=== PATIENT | male | born 1995 | race Caucasian/White ===

== ENCOUNTER 2018-01-11 15:10 | Emergency (ER) | payer OTHER, BC ==
[2018-01-11] MEDS ORDERED: ISOVUE-370 76% 100ML VIAL (Q9967) As Ordered (15:31)
[2018-01-11] MEDS ORDERED: MORPHINE 4 MG/ML 1ML VIAL/SYRINGE (J2270) As Ordered (15:35)
[2018-01-11 15:47] LABS: BASO % 0.2 % (0.0-1.0); HEMOGLOBIN 14.8 g/dl (13.5-17.5); IMMATURE GRANULOCYTE % 0.4 % (0-3.0); LYMPH % 12.6 % (24.0-44.0); MEAN CORPUSCULAR HEMOGLOBIN 29.8 pg (27.0-33.0); MEAN CORPUSCULAR HGB CONC 34.4 g/dl (32.0-36.5); MEAN CORPUSCULAR VOLUME 86.5 fl (80.0-96.0); MONO # 1.2 10^3/uL (0.0-0.8); MONO % 14.3 % (0.0-5.0); NEUTROPHILS # 5.9 10^3/uL (1.8-7.7); NEUTROPHILS % 72.5 % (36.0-66.0); PLATELET COUNT, AUTOMATED 203 10^3/uL (150-450); RED BLOOD COUNT 4.97 10^6/uL (4.30-6.10); RED CELL DISTRIBUTION WIDTH 12.4 % (11.5-14.5); WHITE BLOOD COUNT 8.1 10^3/uL (4.0-10.0)
[2018-01-11] MEDS: MORPHINE 4 MG/ML 1ML VIAL/SYRINGE (J2270) IV (15:53)
[2018-01-11] MEDS: NS 500 ML IV (15:54)
[2018-01-11] MEDS: ASPIRIN 81 MG CHEW TABLET PO (15:54)
[2018-01-11] MEDS: MORPHINE 2 MG/ML 1ML SYRINGE (J2270) IV ×2 (16:09→16:30)
[2018-01-11] MEDS: HEPARIN SOD (PORCINE) 5000 UNITS/ML VIAL IV (16:09)
[2018-01-11] MEDS: CLOPIDOGREL 300 MG TAB (PLAVIX) PO (16:09)
[2018-01-11] MEDS: HEPARIN DRIP 25,000 UNITS in APPROPRIATE DILUENT 1 EA IV (16:09)
[2018-01-11] MEDS ORDERED: ASPIRIN 81 MG CHEW TABLET PO (16:15)
[2018-01-11] MEDS ORDERED: MORPHINE 2 MG/ML 1ML SYRINGE (J2270) IV (16:15)
[2018-01-11 16:24] LABS: INR 1.09; PROTHROMBIN TIME 14.3 SECONDS (12.4-14.5)
[2018-01-11 16:25] LABS: PARTIAL THROMBOPLASTIN TIME 30.4 SECONDS (26.8-37.9)
[2018-01-11 16:38] LABS: ALBUMIN 3.4 GM/DL (3.2-5.2); ALKALINE PHOSPHATASE 86 U/L (45-117); ALT/SGPT 55 U/L (12-78); ANION GAP 9 MEQ/L (8-16); AST/SGOT 104 U/L (7-37); BILIRUBIN,DIRECT 0.2 MG/DL (0.0-0.2); BILIRUBIN,TOTAL 0.8 MG/DL (0.2-1.0); BLOOD UREA NITROGEN 9 MG/DL (7-18); CALCIUM LEVEL 8.1 MG/DL (8.5-10.1); CARBON DIOXIDE LEVEL 26 MEQ/L (21-32); CHLORIDE LEVEL 102 MEQ/L (98-107); CPK CREATINE PHOSPHOKINASE 972 U/L (39-308); CREATININE FOR GFR 1.07 MG/DL (0.70-1.30); GLOMERULAR FILTRATION RATE > 60.0 (>60); GLUCOSE, FASTING 115 MG/DL (70-100); LIPASE 90 U/L (73-393); POTASSIUM SERUM 3.8 MEQ/L (3.5-5.1); SODIUM LEVEL 137 MEQ/L (136-145); TOTAL PROTEIN 6.8 GM/DL (6.4-8.2)
[2018-01-11 16:43] LABS: CK-MB VALUE MASS 58.3 NG/ML (<3.6); MB/CK RELATIVE INDEX 5.99 (< OR =4); NT-PRO BNP 1012 PG/ML (<125)
== END 2018-01-11 16:37 | disposition short-term general hospital (02) ==
LOC: M ED 15:10
DX: I21.3 ST elevation (STEMI) myocardial infarction of unspecified site (principal)
CPT/HCPCS: J2270